=== PATIENT | female | born 1995 | race Caucasian/White ===

== ENCOUNTER 2017-05-08 21:55 | Emergency (ER) | payer MEDICAID, OTHER ==
[2017-05-08 22:01] VITALS: BP 145/83; PULSE 109; RESP 20; TEMP 97.7; O2SAT 100
--- NOTE | 2017-05-08 22:45 | C.PDOC ---
History Of Present Illness 21 year old female presents to the ER with a complaint of right lower back pain that began after she slipped on 1 step and fell on ice 2 days ago, landing on her lower back. 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 Patient took tylenol for her pain yesterday but nothing today. Denies weakness, numbness, dysuria, hematuria, or incontinence. Time Seen by Provider: 05/08/17 22:19 Chief Complaint (Nursing): Back Pain History Per: Patient History/Exam Limitations: no limitations Onset/Duration Of Symptoms: Days Current Symptoms Are (Timing): Still Present Quality Of Discomfort: Unable To Describe Previous Symptoms: None Associated Symptoms: None Recent travel outside of the [place]: No Past Medical History Reviewed: Historical Data, Nursing Documentation, Vital Signs Vital Signs: Last Vital Signs Temp 97.7 F 05/08/17 21:59 Pulse 109 H 05/08/17 21:59 Resp 20 05/08/17 21:59 BP 145/83 05/08/17 21:59 Pulse Ox 100 05/08/17 23:51 - Medical History PMH: Asthma, Bronchitis Family History: States: Unknown Family Hx - Social History Hx Tobacco Use: No Hx Alcohol Use: No Hx Substance Use: No - Immunization History Hx Tetanus Toxoid Vaccination: Yes Hx Influenza Vaccination: No Hx Pneumococcal Vaccination: No Review Of Systems Genitourinary: Negative for: Dysuria, Incontinence, Hematuria Musculoskeletal: Positive for: Back Pain Neurological: Negative for: Weakness, Numbness Physical Exam - Physical Exam Appears: Non-toxic, No Acute Distress Skin: Normal Color, Warm, Dry Head: Atraumatic, Normacephalic Eye(s): bilateral: Normal Inspection Back: No Vertebral Tenderness, Paraspinal Tenderness (Right lumbar), No Other ( Ecchymosis) Extremity: Normal ROM (x4) Neurological/Psych: Oriented x3, Normal Speech, Normal Motor, Normal Sensation Gait: Steady ED Course And Treatment O2 Sat by Pulse Oximetry: 100 (Room air) Pulse Ox Interpretation: Normal Progress Note: Motrin and flexeril administered. Patient is ambulatory in the ER with no pain or discomfort. Will discharge home with instructions to follow up with PMD or return if symptoms worsen. 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 - Scribe Statement The provider has reviewed the documentation as recorded by the Scribe Tyron Castrejon All medical record entries made by the Wilsonibkd were at my direction and personally dictated by me. I have reviewed the chart and agree that the record accurately reflects my personal performance of the history, physical exam, medical decision making, and the department course for this patient. I have also personally directed, reviewed, and agree with the discharge instructions and disposition.
== END 2017-05-08 22:56 | disposition home or self-care (01) ==
LOC: C.ER 21:55
DX: S30.0XXA Contusion of lower back and pelvis, initial encounter (principal); W00.0XXA Fall on same level due to ice and snow, initial encounter; M54.5 Low back pain

== ENCOUNTER 2017-11-15 21:58 | Emergency (ER) | payer SELFPAY ==
[2017-11-15 22:25] VITALS: TEMP 99; O2SAT 98
--- NOTE | 2017-11-15 23:17 | C.PDOC ---
History Of Present Illness 22 year old female presents to the ED c/o left ankle pain and swelling. Patient reports she was walking to her car when she twisted her ankle 2 hours [employer]. Patient states she put some ice before coming to the ED and the swelling went down. Patient denies weakness, numbness, headache, neck pain, other injury. Time Seen by Provider: 11/15/17 22:20 Chief Complaint (Nursing): Lower Extremity Problem/Injury History Per: Patient History/Exam Limitations: no limitations Onset/Duration Of Symptoms: Hrs Current Symptoms Are (Timing): Still Present Recent travel outside of the [place]: No - Ankle/Foot Description Of Injury: Twisted Alleviating Factor(s): Ice Therapy, Elevation Past Medical History Reviewed: Historical Data, Nursing Documentation, Vital Signs Vital Signs: Last Vital Signs Temp 99 F 11/15/17 22:22 Pulse 114 H 11/15/17 22:22 Resp 20 11/15/17 22:22 BP 147/89 11/15/17 22:22 Pulse Ox 98 11/15/17 22:22 - Medical History PMH: Asthma, Bronchitis Surgical History: No Surg Hx Family History: States: Unknown Family Hx - Social History Hx Tobacco Use: No Hx Alcohol Use: No Hx Substance Use: No - Immunization History Hx Tetanus Toxoid Vaccination: No Hx Influenza Vaccination: No Hx Pneumococcal Vaccination: No Review Of Systems Constitutional: Negative for: Fever, Chills Eyes: Negative for: Vision Change Cardiovascular: Negative for: Chest Pain Respiratory: Negative for: Cough Gastrointestinal: Negative for: Nausea, Vomiting Musculoskeletal: Positive for: Foot Pain Skin: Negative for: Rash Neurological: Negative for: Weakness, Numbness Physical Exam - Physical Exam Appears: Non-toxic, No Acute Distress Skin: Normal Color, Warm, Dry, No Rash, No Ecchymosis Head: Atraumatic, Normacephalic Eye(s): bilateral: Normal Inspection Oral Mucosa: Moist Extremity: Normal ROM, Tenderness (left ankle ), Capillary Refill (< 2 seconds), No Deformity, Swelling (left ankle) Pulses: Left Dorsalis Pedis: Normal, Right Dorsalis Pedis: Normal Neurological/Psych: Oriented x3, Normal Speech, Normal Motor, Normal Sensation Gait: Steady ED Course And Treatment O2 Sat by Pulse Oximetry: 98 (ON RA) Pulse Ox Interpretation: Normal Medical Decision Making Medical Decision Making: Plan: * Tylenol 659 mg PO * Left foot X-Ray * Left ankle X-Ray Xrays are negative for fracture or dislocation. Aircast and crutches placed by certified ophthalmic medical technician and checked by me. Disposition - Disposition Referrals: Robert Dunn MD [Staff Provider] - [facility] [Outside] Disposition: HOME/ ROUTINE Disposition Time: 23:58 Condition: GOOD Additional Instructions: Follow up with the medical doctor within 1-2 days without fail. return if worsened. 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 - Scribe Statement The provider has reviewed the documentation as recorded by the Scribe Roderick Day All medical record entries made by the Scribe were at my direction and personally dictated by me. I have reviewed the chart and agree that the record accurately reflects my personal performance of the history, physical exam, medical decision making, and the department course for this patient. I have also personally directed, reviewed, and agree with the discharge instructions and disposition.
[2017-11-16] VITALS: BP 119/72; PULSE 102; RESP 18
--- NOTE | 2017-11-16 08:25 | RAD ---
Date of service: 11/15/2017 PROCEDURE: Left Ankle Radiographs. HISTORY: ankle injury COMPARISON: None FINDINGS: BONES: Normal. No fracture. JOINTS: Normal. No osteoarthritis. Ankle mortise maintained. Talar dome intact SOFT TISSUES: Lateral perimalleolar soft tissue swelling present OTHER FINDINGS: None. IMPRESSION: No fracture or dislocation is suggested. Mild soft tissue swelling in the area of interest is noted.
--- NOTE | 2017-11-16 08:25 | RAD ---
Date of service: 11/15/2017 PROCEDURE: Left Foot Radiographs. HISTORY: pain and injury r/o fx COMPARISON: None. FINDINGS: BONES: Normal. No fracture. JOINTS: Normal. SOFT TISSUES: Normal. 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
== END 2017-11-16 00:17 | disposition home or self-care (01) ==
LOC: C.ER 21:58
DX: S93.402A Sprain of unspecified ligament of left ankle, initial encounter (principal); X50.9XXA Other and unspecified overexertion or strenuous movements or postures, initial encounter; Y93.01 Activity, walking, marching and hiking